=== PATIENT | male | born 1990 | race African-American/Black ===

== ENCOUNTER → 2022-03-13 14:13 | Outpatient (BNVA) | payer SELFPAY | PROVIDERS: Visit Provider Physician Assistant Medical | DX: Z02.79 Encounter for issue of other medical certificate (principal) ==

== ENCOUNTER 2024-01-13 18:03 | Emergency (ER) | payer SELFPAY ==
[2024-01-13 18:15] VITALS: BP 106/64; PULSE 60; RESP 16; TEMP 36.7; O2SAT 98; BMI 20.6
[2024-01-13] MEDS: Diphth,Pertus(ACell),Tet Adult 0.5 ML SYRINGE IM (19:12)
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
[2024-01-13 19:21] VITALS: BP 106/64; PULSE 60; RESP 16; TEMP 36.7; O2SAT 98
== END 2024-01-13 19:25 | disposition home or self-care (01) ==
LOC: HO.ED 19:24
PROVIDERS: Emergency Provider Emergency Medicine
DX: S81.812A Laceration without foreign body, left lower leg, initial encounter (principal); W26.0XXA Contact with knife, initial encounter; Y93.9 Activity, unspecified; Y92.9 Unspecified place or not applicable; Y99.8 Other external cause status; Z23 Encounter for immunization
CPT/HCPCS: 90471; 90715; 99282; 99284

== ENCOUNTER 2024-03-28 13:06 | Emergency (ER) | payer SELFPAY ==
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
[2024-03-28 13:27] VITALS: BP 103/63; PULSE 53; RESP 16; TEMP 36.3; O2SAT 100; BMI 21.1
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
[2024-03-28 15:54] VITALS: BP 103/63; PULSE 53; RESP 16; TEMP 36.3; O2SAT 100
== END 2024-03-28 15:55 | disposition home or self-care (01) ==
PROVIDERS: Emergency Provider Emergency Medicine
DX: S06.0X0A Concussion without loss of consciousness, initial encounter (principal); S16.1XXA Strain of muscle, fascia and tendon at neck level, initial encounter; V43.62XA Car passenger injured in collision with other type car in traffic accident, initial encounter; Y93.89 Activity, other specified; Y92.410 Unspecified street and highway as the place of occurrence of the external cause; Y99.9 Unspecified external cause status
CPT/HCPCS: 70450; 72125; 99282; 99284

== ENCOUNTER 2024-10-07 18:43 | Emergency (ER) | payer OTHER, SELFPAY ==
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
[2024-10-07 19:17] VITALS: BP 127/72; PULSE 98; RESP 16; TEMP 36.7; O2SAT 100; BMI 22.4
[2024-10-07 23:07] VITALS: BP 127/72; PULSE 98; RESP 16; TEMP 36.7; O2SAT 100
== END 2024-10-07 23:08 | disposition home or self-care (01) ==
PROVIDERS: Emergency Provider Emergency Medicine
DX: S06.0X0A Concussion without loss of consciousness, initial encounter (principal); V43.52XA Car driver injured in collision with other type car in traffic accident, initial encounter; Y93.9 Activity, unspecified; Y92.410 Unspecified street and highway as the place of occurrence of the external cause; Y99.9 Unspecified external cause status
CPT/HCPCS: 72040; 99283

== ENCOUNTER → 2024-10-07 19:10 | Outpatient (BNV) | payer OTHER, SELFPAY | PROVIDERS: Visit Provider Student in an Organized Health Care Education/Training Program | DX: S06.0X0A Concussion without loss of consciousness, initial encounter (principal); V89.2XXA Person injured in unspecified motor-vehicle accident, traffic, initial encounter | CPT/HCPCS: 72040 ==